=== PATIENT | male | born 1950 | race Caucasian/White ===

== ENCOUNTER → 2017-07-24 12:48 | Outpatient (CLI) | payer MEDICARE, OTHER, SELFPAY ==
--- NOTE | 2017-07-24 12:52 | CDU_ITS ---
Reason For Study: CAROTID BRUIT Rt. Velocities/BP Lt. Velocities/BP Prox CCA 94/55 cm/sec. Prox CCA 153/29 cm/sec. Mid CCA 53/13 cm/sec. Mid CCA 123/23 cm/sec. Dist CCA 67/18 cm/sec. Dist CCA 118/25 cm/sec. Prox ICA 78/26 cm/sec. Mid ICA 113/41 cm/sec. Mid ICA 111/35 cm/sec. Dist ICA 101/33 cm/sec. Dist ICA 108/33 cm/sec. Prox ICA 99/26 cm/sec. Rt. ICA/CCA = 2.1. Lt. ICA/CCA = .9. Prox ECA 332/29 cm/sec. Prox ECA 168/20 cm/sec. Rt. Vert. 57/11 cm/sec. Lt. Vert. 52/7 cm/sec. Right Extracranial There is homogeneous, smooth atherosclerotic plaque noted in the right common carotid artery. There is heterogeneous, irregular atherosclerotic plaque noted in the right internal carotid artery. There is heterogeneous, irregular atherosclerotic plaque noted in the right external carotid artery. Antegrade flow is noted in the right vertebral artery. There is homogeneous, smooth atherosclerotic plaque noted in the right bulb. Left Extracranial There is heterogeneous, smooth atherosclerotic plaque noted in the left common carotid artery. There is heterogeneous, irregular atherosclerotic plaque noted in the left internal carotid artery. There is homogeneous, smooth atherosclerotic plaque noted in the left external carotid artery. Antegrade flow is noted in the left vertebral artery. There is heterogeneous, irregular atherosclerotic plaque noted in the left bulb. Procedure Carotid Duplex [id number]. [employer] machine used for imaging d/t machine down. Exam performed in department. Interpretation Summary Mild (<50%) stenosis right extracranial internal carotid. Mild (<50%) stenosis left extracranial internal carotid. Flow within the vertebral arteries is antegrade bilaterally. Ordering Physician: RAMA, EDWARD Referring Physician: DOCTOR, OUT OF TOWN Performed By: Susi Pruett, REJI, RVT
== END ==
DX: I65.23 Occlusion and stenosis of bilateral carotid arteries (principal); R09.89 Other specified symptoms and signs involving the circulatory and respiratory systems
CPT/HCPCS: 93880

== ENCOUNTER → 2018-09-05 08:36 | Outpatient (CLI) | payer MEDICARE, OTHER, SELFPAY ==
--- NOTE | 2018-09-05 08:41 | CDU_ITS ---
Reason For Study: Bruit Rt. Velocities/BP Lt. Velocities/BP Prox CCA 60/11 cm/sec. Prox CCA 131/27 cm/sec. Mid CCA 66/16 cm/sec. Mid CCA 109/25 cm/sec. Dist CCA 54/16 cm/sec. Dist CCA 109/29 cm/sec. Prox ICA 67/19 cm/sec. Prox ICA 90/28 cm/sec. Mid ICA 77/26 cm/sec. Mid ICA 106/38 cm/sec. Dist ICA 89/29 cm/sec. Dist ICA 100/36 cm/sec. Rt. ICA/CCA = 1.35. Lt. ICA/CCA = 0.97. Prox ECA 352/46 cm/sec. Prox ECA 171/15 cm/sec. Rt. Vert. 53/11 cm/sec. Lt. Vert. 45/12 cm/sec. Right Extracranial There is heterogeneous, smooth atherosclerotic plaque noted in the right common carotid artery. There is heterogeneous, smooth atherosclerotic plaque noted in the right internal carotid artery. There is heterogeneous, irregular atherosclerotic plaque noted in the right external carotid artery. Antegrade flow is noted in the right vertebral artery. Left Extracranial There is heterogeneous, smooth atherosclerotic plaque noted in the left common carotid artery. There is heterogeneous, irregular atherosclerotic plaque noted in the left internal carotid artery. There is homogeneous, smooth atherosclerotic plaque noted in the left external carotid artery. Antegrade flow is noted in the left vertebral artery. Interpretation Summary Mild (<50%) stenosis right extracranial internal carotid. Mild (<50%) stenosis left extracranial internal carotid. Flow within the vertebral arteries is antegrade bilaterally. Elevated systolic velocities are noted in the right external carotid artery, which is suggestive of stenosis >50%. Clinical correlation is advised. Ordering Physician: JOSE M ONTIVEROS Referring Physician: Jose M Loera Performed By: Gwendolyn Dahl, REJI, RVT
== END ==
DX: I65.23 Occlusion and stenosis of bilateral carotid arteries (principal); R09.89 Other specified symptoms and signs involving the circulatory and respiratory systems
CPT/HCPCS: 93880